=== PATIENT | female | born 2000 | race Two or more races ===

== ENCOUNTER 2020-04-03 12:19 | Emergency (ER) | payer OTHER ==
[~2020-04-03] VITALS: Ht 157.5 cm; Wt 99.8 kg
[2020-04-03] MEDS ORDERED: VITATRUE COMBO1 EACH PO (12:33)
== END 2020-04-03 18:22 | disposition home or self-care (01) ==
LOC: ER 12:19
DX: O26.852 Spotting complicating pregnancy, second trimester (principal); O23.32 Infections of other parts of urinary tract in pregnancy, second trimester; O36.80X1 Pregnancy with inconclusive fetal viability, fetus 1; Z3A.14 14 weeks gestation of pregnancy